=== PATIENT | male | born 1965 | race Caucasian/White ===

== ENCOUNTER 2017-11-25 19:02 | Inpatient (IN) | payer BC, OTHER ==
[~2017-11-25] VITALS: Ht 188 cm; Wt 87.1 kg
--- NOTE | 2017-11-25 22:25 | NUR ---
PRE-ADMISSION NOTE Pt seen in the intake office. Pt is intoxicated and not experiencing withdrawal symptoms. Pt appears tired and disheveled. Pt is A/O to person, place, time, and purpose. Pt has a steady gait. V/S: P:69, RR:16, SPO2:97, BP:132/79. Pt is acceptable for admission to the unit.
--- NOTE | 2017-11-25 23:02 | NUR ---
ADMISSION NOTE Pt is a 52 y/o male being admitted for medically supervised withdrawal from Benzodiazepines. The pt is intoxicated and is not currently experiencing withdrawal. Pt appears tired and disheveled. Pt has a flat affect and depressed mood. Pt is A/O to person, place, time, and purpose. Pt states that typical withdrawal symptoms from this substance include: sweats, chills, pins and needles on his skin, anxious mood, depression, facial numbness, and tooth pain. The last time I stopped taking Ativan my skin was crawling, my heart began to race, and I felt really down. Pt denies any h/o withdrawal induced seizures. Pt states current substance use as follows: 1. Ativan: 2mg daily for the past 6 weeks. Pts last use was 1mg at 1900 on 11/25/17. Pt first began using in August 2017. Pt states he is seeking treatment today because he doesnt feel like himself when he takes Ativan. I dont function normally and my head is not clear. Pt states that he hasnt slept well since he started taking Ativan. Pt also states he had to quit his job because he couldnt focus at work. I just dont ever want to take another Ativan ever again. Pt states that he has never been in treatment before, but he wants to do everything he can to get off this crap. Pt states they wish to continue treatment at a treatment facility where they can figure out another option for him to take besides Ativan. Pt states that his is very supportive of him and helped him, along with the lease administrator from the treatment facility he wants to go to, to get in here. V/S: P:69, RR:16, SPO2:97, BP:132/79.. Pt denies any pain currently. Pts respirations are unlabored and even. Pt has regular daily BM. Pts skin is intact and he is 62 192lbs. Pt has allergies to epinephrine and contrast dye. He follows a regular diet at home when he has an appetite. Pt has never been a smoker. Pt doesnt recall the name of his PCP and just started seeing a psychiatrist. Pt denies any previous medical Hx. Pt states that he was diagnosed w/ anxiety and depression by the new psychiatrist. Pt educated on the plan of care including detox, group and individual therapy, medications, and discharge. Pt was encouraged to be open and honest, and verbalized support for his choice to enter into recovery.
--- NOTE | 2017-11-26 | NUR ---
CIWA DEFERRED. V/S REFUSED Pt is in bed w/ his eyes closed. Pt's respirations are unlabored and even.
[2017-11-26] MEDS ORDERED: MAGNESIUM HYDROXIDE 30 ML LIQUID UDC PO PRN (00:30)
[2017-11-26] MEDS ORDERED: diphenhydrAMINE 50 MG CAPSULE PO PRN (00:30)
[2017-11-26] MEDS ORDERED: MIRALAX 17 GM POWD.PACK PO PRN (00:30)
[2017-11-26] MEDS ORDERED: LOPERAMIDE HCL 2 MG CAPSULE PO PRN ×2 (00:30)
[2017-11-26] MEDS ORDERED: ONDANSETRON 4 MG/2 ML VIAL IM PRN (00:30)
[2017-11-26] MEDS ORDERED: ONDANSETRON ODT 4 MG TAB.RAPDIS SL PRN (00:30)
[2017-11-26] MEDS ORDERED: CLONIDINE HCL 0.1 MG TABLET PO PRN (00:30)
[2017-11-26] MEDS ORDERED: THIAMINE HCL 200 MG/2 ML VIAL IM ONE (00:30)
[2017-11-26] MEDS ORDERED: LORAZEPAM 1 MG TABLET PO PRN ×2 (00:30)
[2017-11-26] MEDS ORDERED: IBUPROFEN 400 MG TABLET PO PRN (00:30)
[2017-11-26] MEDS ORDERED: ACETAMINOPHEN 325 MG TABLET PO PRN (00:30)
[2017-11-26] MEDS ORDERED: MAG HYDROX/AL HYDROX/SIMETH 30 ML LIQUID UDC PO PRN (00:30)
[2017-11-26] MEDS ORDERED: BACI3.5O23 OP (00:57)
[2017-11-26] MEDS ORDERED: VILA10TA PO (00:57)
[2017-11-26] MEDS ORDERED: LORA1TAB PO (00:57)
[2017-11-26] MEDS ORDERED: CARB15DR63 OT (00:57)
[2017-11-26 01:07] LABS: BASOPHILS % (AUTO) 0.4 % (0.0-2.0); EOSINOPHILS # (AUTO) 0.1 K/uL (0.0-0.7); EOSINOPHILS % (AUTO) 0.8 % (0.0-7.0); HEMATOCRIT 44.5 % (36.7-47.1); HEMOGLOBIN 14.9 g/dL (12.5-16.3); LYMPHOCYTES # (AUTO) 2.6 K/uL (20.0-40.0); LYMPHOCYTES % (AUTO) 38.7 % (20.5-51.5); MEAN CORPUSCULAR HEMOGLOBIN 31.3 uug (23.8-33.4); MEAN CORPUSCULAR HGB CONC 34 g/dL (32.5-36.3); MEAN CORPUSCULAR VOLUME 93.2 fL (73.0-96.2); MONOCYTES # (AUTO) 0.5 K/uL (2.0-10.0); MONOCYTES % (AUTO) 7.2 % (0.0-11.0); NEUTROPHILS # (AUTO) 3.6 K/uL (1.8-8.9); NEUTROPHILS % (AUTO) 52.9 % (38.5-71.5); PLATELET COUNT (AUTO) 236 K/uL (152-348); RED BLOOD CELL COUNT(AUTO) 4.77 MIL/uL (4.06-5.63); WHITE BLOOD COUNT (AUTO) 6.8 K/uL (3.6-10.2)
[2017-11-26 01:09] LABS: *AMPHETAMINE, URINE NEGATIVE (NEGATIVE); *BARBITURATE, URINE NEGATIVE (NEGATIVE); *CANNABINOID, URINE NEGATIVE (NEGATIVE); *COCCAINE, URINE NEGATIVE (NEGATIVE); *OPIATE, URINE NEGATIVE (NEGATIVE); *PHENCYCLIDINE SCREEN,URINE NEGATIVE (NEGATIVE)
[2017-11-26 01:29] LABS: ETHANOL < 3 MG/DL (0-0)
[2017-11-26 01:37] LABS: ALANINE AMINOTRANSFERASE 22 U/L (16-63); ALKALINE PHOSPHATASE 76 U/L (50-136); AMYLASE 102 U/L (25-115); ASPARTATE AMINOTRANSFERASE 20 U/L (15-37); BILIRUBIN,TOTAL 0.8 mg/dL (0.2-1.0); CARBON DIOXIDE 30 mmol/L (21-32); CHLORIDE 102 mmol/L (98-107); GLUCOSE 81 mg/dL (74-106); LIPASE 192 U/L (73-393); MAGNESIUM 2.2 mg/dL (1.8-2.4); POTASSIUM 3.8 mmol/L (3.5-5.1); TOTAL PROTEIN, SERUM 7.4 g/dL (6.4-8.2); UREA NITROGEN, BLOOD 16 mg/dL (7-18)
[2017-11-26 01:48] LABS: THYROID STIMULATING HORMONE 1.864 mIU/mL (0.358-3.740)
--- NOTE | 2017-11-26 04:14 | NUR ---
CIWA DEFERRED. V/S REFUSED Pt is in bed w/ his eyes closed. Pt's respirations are unlabored and even.
--- NOTE | 2017-11-26 07:12 | NUR ---
END OF SHIFT NOTE Endorsed pt to oncoming nurse. Pt is a 52 y/o male A/O to person, [place, time, and purpose. Pt was admitted for medically supervised withdrawal from Benzodiazepines. Pt you to present w/ anxiety. Pt denies any S/I or H/I. No PRN medications were given to the pt. Pts fluid intake was 1350 and he slept for 6hrs. Call light is within reach.
--- NOTE | 2017-11-26 07:30 | NUR ---
Start of Sift Last CIWA zero at 2400. Pt A&Ox4. He has pressured speech, he is disorganized, c/o moderate anxiety. Encouraged Pt to participate in group activities, socialize with others and identify positive coping skills to maintain sobriety. Fall precautions and all safety measures in place. Side rails up x2. Call light functioning and within reach. All needs attended and met. Will continue to assess for withdrawal symptoms.
[2017-11-26 08:00] VITALS: BP 121/81
--- NOTE | 2017-11-26 08:00 | NUR ---
CIWA 4- Pt c/o mild anxiety, skin warm, dry. No or slight hand tremors.
[2017-11-26] MEDS: THIAMINE HCL 100 MG TABLET PO SCH (09:14)
[2017-11-26] MEDS: MULTIVITAMINS,THERAPEUTIC TABLET PO SCH (09:14)
[2017-11-26] MEDS: FOLIC ACID 1 MG TABLET PO SCH (09:15)
--- NOTE | 2017-11-26 09:17 | NUR ---
PRN Clonidine 0.1 mg PO for anxiety. Pt hesitant to take too many medications that are not on Ret[facility] list he brought in with him. TERESA 4.
--- NOTE | 2017-11-26 10:20 | NUR ---
Reassess Clonidine- Pt remains anxious, irritable, pacing halls ans he is upset about not being able to make calls with his cell phone. Offered Pt PRN Ativan for anxiety he declined. Pt speaking with home health care case manager about facility rules and protocols.
[2017-11-26] MEDS: PHENOBARBITAL 60 MG TABLET PO SCH ×3 (11:45→21:00)
[2017-11-26 12:00] VITALS: BP 126/76
--- NOTE | 2017-11-26 12:00 | NUR ---
CIWA 5- Pt c/o anxiety, facial numbness, tactile sensations, fatigue,difficulty concentrating and poor appetite.
--- NOTE | 2017-11-26 12:42 | NUR ---
Pt refused Phenobarbital 30 mg dose due for 1200. He will consider taking next scheduled dose at 1500.
[2017-11-26 16:00] VITALS: BP 135/84
--- NOTE | 2017-11-26 16:10 | NUR ---
TERESA 9- Pt c/o anxiety, tactile sensations, facial numbness, fatigue, difficulty concentrating and poor appetite. He reports some relief from Phenobarbital
--- NOTE | 2017-11-26 17:00 | NUR ---
authorized extra Phenobarbital 30 mg PO dose at 1700, but patient declined. Order not entered.
[2017-11-26 17:45] VITALS: BP 123/84
--- NOTE | 2017-11-26 18:53 | NUR ---
End of Sift Last CIWA 9 at 1600. Pt A&Ox4. Pt on 3 day modified Phenobarbital taper. Pt is disorganized, anxious, has a sense of panic. He c/o tactile sensations, facial numbness, tense body, difficulty concentrating and poor appetite. Pt reports he cannot tell if he is withdrawing or having anxiety attack. He doesnt think the Phenobarbital is working. PRN given today; Clonidine. Encouraged Pt to participate in group activities, socialize with others and identify positive coping skills to maintain sobriety. PO fluids 2090 ml, voids x4, BMx1. Fall precautions and all safety measures in place. Side rails up x2. Call light functioning and within reach. All needs attended and met. Will continue to assess for withdrawal symptoms. Endorsed to PM shift.
--- NOTE | 2017-11-26 19:30 | NUR ---
Start of shift note Received report from day shift nurse. Patient is a 52 year old male admitted for Benzodiazepine withdrawal. Patient is on Phenobarbital taper. Patient was anxious during the day. Patient refused 1200 and 5 PM dose of Phenobarbital taper. AMA risk due to anxiety. Patient alert and verbally responsive. Patient anxious, panic feeling, restless, irritable, agitated, pins and needles sensations on left hand and toes and restless legs. Relaxation technique provided and positive encouragement. Educated of medication. Safety measures in place. Call light in reach. Will continue to monitor.
[2017-11-26 20:00] VITALS: BP 119/86
--- NOTE | 2017-11-26 20:00 | NUR ---
CIWA assessment Patient anxious, panic feeling, restless, irritable, agitated, pins and needles sensations on left hand and toes and restless legs. CIWA 12.
--- NOTE | 2017-11-26 20:00 | NUR ---
Phenobarbital refused Patient refused Phenobarbital. Patient educated on medication
--- NOTE | 2017-11-26 20:04 | NUR ---
PRN Ativan administration Patient anxious, panic feeling, restless, irritable, agitated, pins and needles sensations on left hand and toes and restless legs CIWA 12.
--- NOTE | 2017-11-26 20:15 | NUR ---
Behavioral note After giving the Ativan, patient came up at the nurses station, anxious, restless, agitated and wanting to leave AMA. Patient refused to take Phenobarbital taper. Patient states I dont like the way that medication makes me feel. Patient reports that Ativan is the only effective medication for anxiety. Patient having conflicting emotions about desire to come off of Ativan. Patient insisting to leave the facility. I want all my belongings and I want to leave now. Educated patient about not getting his prescribed Ativan back if he were to leave, patient presented with increased agitation that led him punching the wall. Staff let the patient talked to his Daughter. After talking to his daughter , patient still anxious, agitated and wanting to leave AMA. Ariel gutierrez called. Patient emotionally labile, redirected and calmed down. Hands were assessed and no open area or redness noted. Patient apologized regarding his behavior.
--- NOTE | 2017-11-26 21:04 | NUR ---
PRN Ativan re-assessment/CIWA re-assessment Patient is more calm at this time after Ativan and staff talked to him. Relaxation technique provided.Will continue to monitor
[2017-11-26] MEDS ORDERED: LORAZEPAM 0.5 MG TABLET PO PRN (21:45)
[2017-11-27] VITALS: BP_SYST 128; BP_SYST 132; BP_DIAS 72; BP_DIAS 84
--- NOTE | 2017-11-27 | NUR ---
CIWA deferred Patient lying in bed with eyes closed. Respiration even and unlabored. Will continue to monitor.
[2017-11-27 04:00] VITALS: BP 99/58
--- NOTE | 2017-11-27 04:00 | NUR ---
CIWA assessment Patient in bed awake, patient states he's anxious and unable to sleep. CIWA 5. Patient states he will try to go back to sleep.
--- NOTE | 2017-11-27 07:20 | NUR ---
End of shift note Patient slept 6 hours. Fluid intake1,032. Voided x 2. No BM. Patient anxious, panic feeling, restless, irritable, agitated, pins and needles sensations on left hand and toes and restless legs Patient was anxious during shift. Patient refused Phenobarbital taper at 2100. AMA risk due to anxiety. Continuous relaxation technique provided and positive encouragement given. Patient was given PRN Ativan. Safety measures in place. Call light in reach. Will continue to monitor. Last CIWA 5.
--- NOTE | 2017-11-27 07:40 | NUR ---
START OF SHIFT Endorse rcvd from ongoing nurse, PRN Ativan 1mg PO for anxiety. Client slept 6 hrs. Last CIWA 5 @ 0400. Client is in bed, lying on his L side, he sounds asleep, easy to arouse. RR 16, even, non-labored. Call light within reach. Will continue to monitor.
[2017-11-27 08:55] VITALS: BP 123/84
[2017-11-27] MEDS ORDERED: TUBERCULIN,PURIF.PROT.DERIV. 5 TU/0.1 ML TEST ID ONE (09:00)
[2017-11-27] MEDS ORDERED: PHENOBARBITAL 60 MG TABLET PO SCH (09:00)
[2017-11-27 09:06] LABS: HEPATITIS B SURFACE AG Negative (Negative)
[2017-11-27] MEDS: MULTIVITAMINS,THERAPEUTIC TABLET PO SCH (09:08)
[2017-11-27] MEDS: FOLIC ACID 1 MG TABLET PO SCH (09:08)
[2017-11-27] MEDS: THIAMINE HCL 100 MG TABLET PO SCH (09:08)
--- NOTE | 2017-11-27 09:08 | NUR ---
CIWA 4 Client presents with anxiety, agitation, but he declines Phenobarbital taper, stating, "That medication makes me groggy and does not help me with my anxiety." CN notified.
--- NOTE | 2017-11-27 09:48 | NUR ---
COWS 13 Client is in bed, he appears disheveled, dark circles under eyes, dry, chapped lips, depressed mood, flat affect, tremors felt, clammy skin, and difficulty concentration. Client reports anxiety, nausea, abdominal cramps, decreased appetite, sweats, and fatigue. Schedule Subutex 2mg SL administered. Encourage client to attend group therapy to learn skills to maintain sober. Call light within reach. Addendum: 11/27/17 at 1720 by ALVINO BARNES RN wrong client
--- NOTE | 2017-11-27 10:35 | NUR ---
PRN Ativan 0.5mg PO Client presents with anxiety, agitation, MB pacing in the hallway, restlessness, and flushed face. Demonstrated deep breathing, client requires additional teaching. Call light within reach.
--- NOTE | 2017-11-27 11:35 | NUR ---
Reassess PRN Ativan 0.5mg PO Client reports feeling slightly less anxious, but request to leave today. CN and MD notified. Call light within reach.
[2017-11-27 12:00] VITALS: BP 140/90
--- NOTE | 2017-11-27 12:00 | NUR ---
CIWA 4 Client presents with anxiety, agitation, m/b increased BP 140/90, client refuses PRN medications for anxiety and agitation stating, "I just want to go home, this place is making me very anxious, my blood pressure has never been this high before." Call light within reach. MD and CN notified.
--- NOTE | 2017-11-27 14:40 | NUR ---
Discharge Note Client discharged in stable condition with all valuable, belongings and home meds. Client denies SI/HI. To home via private car.
[2017-11-28] MEDS ORDERED: PHENOBARBITAL 60 MG TABLET PO SCH (09:00)
== END 2017-11-27 14:40 | disposition home or self-care (01) | DRG 895 ==
LOC: SRC 21:29
PROVIDERS: ADMIT Family Medicine Addiction Medicine; ATTEND Family Medicine Addiction Medicine
PROC: HZ2ZZZZ Detoxification Services for Substance Abuse Treatment (ICD-10-PCS; principal; 2017-11-25)
PROC: HZ51ZZZ Individual Psychotherapy for Substance Abuse Treatment, Behavioral (ICD-10-PCS; 2017-11-27)
DX: F13.230 Sedative, hypnotic or anxiolytic dependence with withdrawal, uncomplicated (principal); F41.9 Anxiety disorder, unspecified; Z63.0 Problems in relationship with spouse or partner
CPT/HCPCS: 36415; 80307; 83690; 83735; 84443; 85025; 86592; 86705; 86803; 87340; 87806; G0480; J8499